=== PATIENT | male | born 1970 | race Caucasian/White ===

== ENCOUNTER 2022-01-03 21:19 | Emergency (ER) | payer BC ==
[2022-01-03 22:04] LABS: #Basophils 0.1 10x3/uL (0.0-0.2); #Monocytes 0.7 10x3/uL (0.0-1.1); #Neutrophils 9.8 10x3/uL (1.5-8.4); %Basophils 0.4 % (0.0-2.0); %Eosinophils 0.2 % (0.0-6.0); %Lymphocytes 11.9 % (18.0-47.0); %Monocytes 6.1 % (0.0-10.0); %Neutrophils 81.1 % (40.0-75.0); Hemoglobin 14.2 g/dL (13.5-17.5); Mean Corpuscular HGB CONC 34.9 g/dL (32.0-36.0); Mean Corpuscular Hemoglobin 31.1 pg (27.0-33.0); Mean Corpuscular Volume 89.3 fl (81.2-95.1); Mean Platelet Volume 9.5 fl (7.4-10.4); Platelet Count 216 10x3/uL (150-450); Red Blood Cell (RBC) Count 4.56 10x6/uL (4.32-5.72); White Blood Cell (WBC) Count 12.1 10x3/uL (3.5-10.5)
[2022-01-03 22:11] LABS: ALT (SGPT) 45 U/L (8-55); AST (SGOT) 23 U/L (5-34); Albumin 4.4 g/dL (3.5-5.0); Alkaline Phosphatase 71 U/L (40-110); Anion Gap 17 mmol/L (10-20); BUN (Urea Nitrogen) 23 mg/dL (8.4-25.7); Bilirubin, Total 2.5 mg/dL (0.2-1.2); Calc. Creatinine Clearance 0 mL/min (70-130); Calcium 9.4 mg/dL (7.8-10.44); Carbon Dioxide 21 mmol/L (22-29); Chloride 107 mmol/L (98-107); Globulin 2.8 g/dL (2.4-3.5); Glucose 90 mg/dL (70-105); Lipase 15 U/L (8-78); Protein, Total 7.2 g/dL (6.0-8.3); Sodium 141 mmol/L (136-145)
[2022-01-03 22:14] LABS: Bilirubin Neg (Negative); Blood, Urine 250 (Negative); Clarity Clear (Clear); Glucose, Urine (Dipstick) Normal (Negative); Ketone, Urine 50 mg/dL (Negative); Leukocyte Negative (Negative); Nitrite Negative (Negative); Protein, Urine (Dipstick) Negative (Neg-Trace); Specific Gravity, Urine 1.025 (1.002-1.036); Urobilinogen Normal mg/dL (Less than 2)
[2022-01-03 22:24] LABS: Bacteria/HPF None Seen HPF (None Seen); RBC/HPF 21-50 HPF (0-3); Squamous Epithelial None Seen HPF (0-3); WBC/HPF 0-3 HPF (0-3)
[2022-01-03] MEDS ORDERED: Ketorolac Tromethamine 30 MG/ML VIAL ONE (23:03)
== END 2022-01-03 23:55 | disposition home or self-care (01) ==
LOC: CSHERS 21:19
DX: N17.9 Acute kidney failure, unspecified (principal); R94.5 Abnormal results of liver function studies; R31.9 Hematuria, unspecified; E78.5 Hyperlipidemia, unspecified; Z87.442 Personal history of urinary calculi; Z79.899 Other long term (current) drug therapy
CPT/HCPCS: 36415; 74177; 80053; 81003; 81015; 83690; 85025; 87086; 93005; 96374; J1885

== ENCOUNTER 2022-05-02 10:03 | Outpatient (CLI) | payer BC ==
[~2022-05-02 10:03] MED LIST: Iopamidol 300 61% 100 ML VIAL FS ONE
== END 2022-05-02 10:04 | disposition home or self-care (01) ==
LOC: CSHCT 10:03
PROVIDERS: ATTEND Internal Medicine
DX: R10.9 Unspecified abdominal pain (principal); K42.9 Umbilical hernia without obstruction or gangrene; K63.9 Disease of intestine, unspecified; K80.20 Calculus of gallbladder without cholecystitis without obstruction; N20.0 Calculus of kidney
CPT/HCPCS: 74177; Q9967

== ENCOUNTER 2022-10-19 17:55 | Emergency (ER) | payer OTHER, BC ==
[2022-10-19] MEDS ORDERED: Morphine 4 MG/ML VIAL ONE (18:27)
[2022-10-19] MEDS ORDERED: Morphine 2 MG/ML VIAL ONE (18:28)
[2022-10-19] MEDS ORDERED: Ketorolac Tromethamine 30 MG/ML VIAL ONE (20:00)
== END 2022-10-19 19:58 | disposition home or self-care (01) ==
LOC: CSHERS 17:55
DX: S52.571A Other intraarticular fracture of lower end of right radius, initial encounter for closed fracture (principal); S62.011A Displaced fracture of distal pole of navicular [scaphoid] bone of right wrist, initial encounter for closed fracture; E78.5 Hyperlipidemia, unspecified; W01.0XXA Fall on same level from slipping, tripping and stumbling without subsequent striking against object, initial encounter
CPT/HCPCS: 96372; J1885; J2270

== ENCOUNTER 2023-05-13 14:14 | Outpatient (CLI) | payer BC | END 2023-05-13 14:15 | disposition home or self-care (01) | LOC: CSHULT 14:14 | PROVIDERS: ATTEND Urology | DX: N20.0 Calculus of kidney (principal) | CPT/HCPCS: 76770 ==